=== PATIENT | female | born 1945 | race Caucasian/White ===

== ENCOUNTER 2021-03-29 13:48 | Outpatient (CLI) | payer MEDICARE, SELFPAY ==
--- NOTE | ~2021-03-29 | US_ITS ---
EXAMINATION: US venous doppler LE EXAM DATE: 03/29/2021 14:43 INDICATION: Bilateral leg edema. TECHNIQUE: Multiple grayscale, color flow and Doppler images of the lower extremity deep venous syste ms bilaterally were obtained and reviewed. There is no prior study for comparison. FINDINGS: Right side: The right common femoral, femoral and profunda veins demonstrate normal color flow, respi ratory variation, augmentation and compressibility. Compressibility, color flow confirmed within the right popliteal, posterior tibial, peroneal, and greater saphenous veins. Left side: The left common femoral, femoral and profunda veins demonstrate normal color flow, respira tory variation, augmentation and compressibility. Compressibility, color flow confirmed within the l eft popliteal, posterior tibial, peroneal, and greater saphenous veins. Left popliteal fossa complex cystic lesion consistent with Tovar's cyst measuring 5.7 x 1.8 x 3.8 cm. IMPRESSION: 1. No lower extremity deep venous thrombosis bilaterally. 2. Moderate-sized left Tovar's cyst. Reviewed, dictated and finalized at location B.
[2021-03-29 14:16] LABS: Add Urine Microscopic? YES; Appearance Urine Clear (Clear); Basophils Absolute Auto 0.03 K/mm3 (0.00-0.10); Basophils Percent Auto 0.4 % (0.0-1.0); Bilirubin Urine Negative (Negative); Blood Urine Negative (Negative); Color Urine Yellow (Yellow); Eosinophils Absolute Auto 0.17 K/mm3 (0.02-0.50); Eosinophils Percent Auto 2.2 % (1.0-6.0); Glucose Urine UA Negative (Negative); Hematocrit 39.5 % (35.0-42.0); Hemoglobin 13.2 g/dL (11.7-13.8); Immature Granulocyte Absolute 0.02 K/mm3 (0.00-0.00); Immature Granulocyte Percent A 0.3 % (0.0-0.0); Ketones Urine Trace (Negative); Leukocyte Esterase Ur Negative (Negative); Lymphocytes Percent Auto 30.4 % (18.0-42.0); Mean Corpuscular HGB Conc 33.4 g/dL (32.0-36.0); Mean Corpuscular Hemoglobin 30.7 pg (27.0-31.0); Mean Corpuscular Volume 91.9 fL (78.0-102.0); Mean Platelet Volume 10.4 fl (9.2-11.8); Monocytes Absolute Auto 0.65 K/mm3 (0.10-0.90); Monocytes Percent Auto 8.2 % (2.0-11.0); Neutrophils Absolute Auto 4.6 K/mm3 (1.7-7.2); Neutrophils Percent Auto 58.5 % (50.0-70.0); Nitrate Urine Negative (Negative); Platelet Count Result 277 K/mm3 (150-420); Protein Urine Negative (Negative); Red Cell Distribution Width 12.3 % (11.6-14.4); Specific Grav Ur >= 1.030 (1.010-1.020); Urobilinogen Urine 0.2 mg/dL (0.2-1.0); White Blood Count 7.9 K/mm3 (4.8-10.8); pH Urine 5.5 (5.0-8.0)
[2021-03-29 14:21] LABS: Bacteria Urine 1+ /hpf; Mucus Urine Moderate /lpf; RBC Urine 0-2 /hpf (0-2); Squamous Epithelial Cell Urine Moderate /hpf (Few); WBC Urine 0-3 /hpf (0-3)
[2021-03-29 14:41] LABS: Alanine Aminotransferase 19 U/L (14-59); Alkaline Phosphatase 75 U/L (46-116); Anion Gap 15 mmol/L (8-16); Aspartate Amino Transferase 18 U/L (15-37); Bilirubin,Total 0.4 mg/dL (0.00-1.00); Blood Urea Nitrogen 23 mg/dL (7-18); Calcium 9.2 mg/dL (8.5-10.1); Carbon Dioxide 25 mmol/L (21-32); Chloride 101 mmol/L (98-108); Estimated Glomerular Filt Rate 39; Glucose 133 mg/dL (70-99); NT Pro B Type Natriuretic Pept 166 pg/mL (0-125); Osmolality Calculated 297 mOsm/kg (285-295); Sodium 141 mmol/L (136-145); Thyroid Stimulating Hormone 2.61 uIU/mL (0.36-3.74); Total Protein 7.2 g/dL (6.4-8.2)
== END 2021-03-29 13:49 | disposition home or self-care (01) ==
PROVIDERS: PCP Internal Medicine; Visit Provider Internal Medicine
DX: R60.0 Localized edema (principal); R06.02 Shortness of breath; J45.998 Other asthma
CPT/HCPCS: 36415; 80053; 81001; 83880; 84443; 85025; 93970